=== PATIENT | female | born 1990 | race African-American/Black ===

== ENCOUNTER 2017-06-11 13:02 | Emergency (ER) | payer BC, MEDICAID ==
[~2017-06-11] VITALS: Ht 162.6 cm; Wt 69.4 kg
--- NOTE | 2017-06-11 13:24 | NUR ---
PT IS IN ROOM #1B. DR LITTLE EVALUATED THE PT.
[2017-06-11 15:00] LABS: *BILIRUBIN,URIN NEGATIVE (NEGATIVE); *BLOOD, URINE Trace-intact (NEGATIVE); *CLARITY,URINE SLIGHTLY CLOUDY (CLEAR); *COLOR,URINE YELLOW (YELLOW); *KETONES,URINE NEGATIVE (NEGATIVE); *PROTEIN,URINE 1+ (NEGATIVE); *UROBILINOGEN,URINE 0.2 E.U./dl (NORMAL); LEUKOCYTE ESTERASE ,URINE 1+ (NEGATIVE); NITRITE, URINE POSITIVE (NEGATIVE); UGLUCOSE NEGATIVE (NEGATIVE)
--- NOTE | 2017-06-11 15:13 | NUR ---
DR LITTLE TALKED TO DR RUBY TO DISCUSS OPTIONS OF PT's CT WIT IV CONTRAST. DR RUBY SUGESTED THAT PT CAN HAVE CT WITH IV CONTRAST, BUT WITH SMOLER DOZE OF RADIATION AND SMOLER DOZE OF IV CONTRAST - PER DR LITTLE. DR LITTLE EXPLAINED ALL PROCEDURE TO THE PT AND TO HER FAMILY. PT SIGNED CT ANGIOGRAM CONSENT.
[2017-06-11 15:17] LABS: BACTERIA,URINE MODERATE /HPF (NONE SEEN); RBC,URINE 0-3 /HPF (0-3); SQUAMOUS EPITHELIAL CELL,UR FEW /HPF (NONE SEEN); WBC,URINE 50-80 /HPF (0-3)
[2017-06-11 15:19] LABS: BASOPHILS % (AUTO) 0.2 % (0.0-2.0); HEMATOCRIT 34.3 % (31.2-41.9); HEMOGLOBIN 11.6 g/dL (10.9-14.3); LYMPHOCYTES # (AUTO) 0.6 K/uL (20.0-40.0); LYMPHOCYTES % (AUTO) 6.5 % (20.5-51.5); MEAN CORPUSCULAR HEMOGLOBIN 31.9 uug (24.7-32.8); MEAN CORPUSCULAR HGB CONC 34 g/dL (32.3-35.6); MEAN CORPUSCULAR VOLUME 94.3 fL (75.5-95.3); MONOCYTES # (AUTO) 0.6 K/uL (2.0-10.0); MONOCYTES % (AUTO) 6.3 % (0.0-11.0); NEUTROPHILS # (AUTO) 8.6 K/uL (1.8-8.9); PLATELET COUNT (AUTO) 133 K/uL (179-408); RED BLOOD CELL COUNT(AUTO) 3.64 MIL/uL (3.63-4.92); WHITE BLOOD COUNT (AUTO) 9.8 K/uL (3.8-11.8)
[2017-06-11 15:43] LABS: CREATININE 0.7 mg/dL (0.6-1.3); POTASSIUM 3.4 mmol/L (3.5-5.1)
[2017-06-11] MEDS ORDERED: IOHEXOL 350 100 ML INFUS..BTL ONE (15:50)
[2017-06-11] MEDS ORDERED: IV NORMAL SALINE 100 ML ONE (15:51)
[2017-06-11] MEDS ORDERED: SWABABLE VALVE TRANSFER SET EA MC ONE (15:52)
[2017-06-11] MEDS ORDERED: NORMAL SALINE FLUSH 10 ML DISP.SYRIN ONE (15:53)
[2017-06-11] MEDS ORDERED: IV NORMAL SALINE 1000 ML BAG IV ONE (17:00)
[2017-06-11 18:10] VITALS: BP 125/75
--- NOTE | 2017-06-11 18:10 | NUR ---
PT WAS D/C TO HOME. D/C INSTRUCTIONS GIVEN TO THE PT.
== END 2017-06-11 18:12 | disposition home or self-care (01) ==
LOC: ER 13:08
DX: O23.42 Unspecified infection of urinary tract in pregnancy, second trimester (principal); Z3A.27 27 weeks gestation of pregnancy
CPT/HCPCS: 36415; 71275; 85025; 85610; 93005; A4663; J3490; J7030; Q9967